=== PATIENT | male | born 1990 | race Caucasian/White ===

== ENCOUNTER 2019-07-08 18:51 | Emergency (ER) | payer MEDICAID ==
[~2019-07-08] VITALS: Ht 172.7 cm; Wt 70.3 kg
[2019-07-08 18:55] VITALS: Ht 172.7 cm; Wt 70.3 kg
--- NOTE | 2019-07-08 19:44 | NUR ---
DR. ARRIAZA NOTIFED AND SITTER ORDERED. SITTER AT BEDSIDE. NOTIFIED CHARGE NURSE AND ATTENDING IN REGARDS TO ASSESSMENT FINDINGS. RESOURCES GIVEN TO PT AND SAFETY PLAN INITIATED.
[2019-07-08 20:37] LABS: ANION GAP 17.3 mmol/L (8-16); CALCIUM 9.5 mg/dL (8.5-10.1); CREATININE - SERUM 1.4 mg/dL (0.6-1.3); POTASSIUM - SERUM 3.3 mmol/L (3.5-5.1); UDS - AMPHET POSITIVE QUAL (NEGATIVE); UDS - BARB NEGATIVE QUAL (NEGATIVE); UDS - BENZO NEGATIVE QUAL (NEGATIVE); UDS - COCAINE NEGATIVE QUAL (NEGATIVE); UDS - OPIATE NEGATIVE QUAL (NEGATIVE); UDS - PCP NEGATIVE QUAL (NEGATIVE); UDS - THC POSITIVE QUAL (NEGATIVE)
[2019-07-08 20:40] LABS: BASOPHILS 0.3 % (0-2); HEMATOCRIT 41.4 % (42.0-54.0); HEMOGLOBIN 13.6 g/dL (13.5-17.5); IMMATURE GRANULOCYTES 0.1 % (0-5); LYMPHOCYTES 23.3 % (15-50); MCHC 32.9 g/dL (31.0-37.0); MCV 85.4 fL (80.0-100.0); MEAN PLATELET VOLUME 10.5 fL (7.4-10.4); MONOCYTES 9.3 % (2-11); PLATELET COUNT 303 10x3/uL (130-400); RBC 4.85 10x6/uL (4.20-6.10); RDW 13.4 % (11.5-14.5); WBC 9.4 10x3/uL (4.8-10.8)
[2019-07-08 20:45] LABS: ALBUMIN 3.8 g/dL (3.4-5.0); APPEARANCE CLEAR (CLEAR); BILIRUBIN NEGATIVE (NEGATIVE); BILIRUBIN - TOTAL 1.42 mg/dL (0.2-1.3); COLOR YELLOW (YELLOW); GLUCOSE NEGATIVE (NEGATIVE); KETONE LARGE mg/dL (NEGATIVE); MAGNESIUM - SERUM 2.1 mg/dL (1.8-2.4); NITRITE NEGATIVE (NEGATIVE); PROTEIN NEGATIVE (NEGATIVE); PROTEIN - SERUM 8.1 g/dL (6.4-8.2); SPECIFIC GRAVITY 1.015 (1.005-1.020); UROBILINOGEN NORMAL (NORMAL)
[2019-07-08 21:30] LABS: CREATINE KINASE 518 UL (21-232)
[2019-07-08 21:33] LABS: CKMB 1.9 U/L (0.0-3.6)
[2019-07-08 21:34] LABS: AMYLASE - SERUM 47 U/L (25-115); LIPASE 107 U/L (73-393)
[2019-07-09 03:56] VITALS: BP 110/47
== END 2019-07-09 07:52 ==
LOC: D.ER 18:51
PROVIDERS: Family Medicine
DX: F20.9 Schizophrenia, unspecified (principal); M62.82 Rhabdomyolysis; F19.10 Other psychoactive substance abuse, uncomplicated; R45.851 Suicidal ideations; I12.0 Hypertensive chronic kidney disease with stage 5 chronic kidney disease or end stage renal disease; F17.210 Nicotine dependence, cigarettes, uncomplicated; Z99.2 Dependence on renal dialysis; N17.9 Acute kidney failure, unspecified; M54.9 Dorsalgia, unspecified; K21.9 Gastro-esophageal reflux disease without esophagitis

== ENCOUNTER 2019-10-01 08:34 | Emergency (ER) | payer MEDICAID ==
[2019-10-01 08:47] VITALS: Ht 172.7 cm
[2019-10-01 09:12] LABS: UDS - AMPHET POSITIVE QUAL (NEGATIVE); UDS - BARB NEGATIVE QUAL (NEGATIVE); UDS - BENZO NEGATIVE QUAL (NEGATIVE); UDS - COCAINE NEGATIVE QUAL (NEGATIVE); UDS - OPIATE NEGATIVE QUAL (NEGATIVE); UDS - PCP NEGATIVE QUAL (NEGATIVE); UDS - THC POSITIVE QUAL (NEGATIVE)
[2019-10-01 09:25] LABS: BILIRUBIN NEGATIVE (NEGATIVE); GLUCOSE NEGATIVE (NEGATIVE); KETONE NEGATIVE (NEGATIVE); NITRITE NEGATIVE (NEGATIVE); UROBILINOGEN NORMAL (NORMAL)
[2019-10-01 09:29] LABS: BACTERIA FEW /hpf (NEGATIVE); EPITHELIAL CELLS NSEEN /hpf (0-5); RED CELLS - URINE 0-5 /hpf (0-5); WHITE CELLS - URINE 0-5 /hpf (NEGATIVE)
[2019-10-01 09:32] LABS: BASOPHILS 0.2 % (0-2); EOSINOPHILS 0.2 % (0-7); HEMATOCRIT 39.3 % (42.0-54.0); HEMOGLOBIN 13.1 g/dL (13.5-17.5); IMMATURE GRANULOCYTES 0.2 % (0-5); LYMPHOCYTES 18.5 % (15-50); MCH 28.9 pg (26.0-34.0); MCHC 33.3 g/dL (31.0-37.0); MCV 86.8 fL (80.0-100.0); MEAN PLATELET VOLUME 9.3 fL (7.4-10.4); MONOCYTES 8.1 % (2-11); NEUTROPHILS 72.8 % (40-80); RBC 4.53 10x6/uL (4.20-6.10); RDW 13.9 % (11.5-14.5); WBC 10.9 10x3/uL (4.8-10.8)
[2019-10-01 09:35] LABS: PLATELET COUNT 374 10x3/uL (130-400)
[2019-10-01 09:41] LABS: CALC OSMOLALITY 282 mosm/kg (275-300); CALCIUM 9.1 mg/dL (8.5-10.1); CARBON DIOXIDE 30.2 mmol/L (21.0-32.0); CHLORIDE - SERUM 104 mmol/L (98-107); CREATININE - SERUM 1.1 mg/dL (0.6-1.3); GLUCOSE 91 mg/dL (74-106); POTASSIUM - SERUM 3.8 mmol/L (3.5-5.1); SODIUM 141 mmol/L (136-145); UREA NITROGEN 17 mg/dL (7-18); eGFR NON AFRICAN AMERICAN 83 mL/min (90-120)
[2019-10-01 09:46] LABS: ALBUMIN 4.1 g/dL (3.4-5.0); ALKALINE PHOSPHATASE 97 U/L (30-120); ALT (SGPT) 22 U/L (10-68); BILIRUBIN - TOTAL 0.37 mg/dL (0.2-1.3); PROTEIN - SERUM 7.7 g/dL (6.4-8.2)
--- NOTE | 2019-10-01 09:58 | NUR ---
DR ARRIAZA NOTIFIED AND REVIEWED PT'S BEHAVIOR AND ASSESSMENT. PT IS A HIGH RISK. STATED HE HEARS VOICES TELLING HIM TO KILL HIMSELF. PATIENT HAVING VISUAL AND AUDITORY HALLUCINATIONS AT THIS TIME. PATIENT PARANOID AND DELUSIONAL. SITTER ORDERED AND AT BEDSIDE. REFUSED SUICIDE RESOURCES.
[2019-10-01 14:54] VITALS: BP 134/63
== END 2019-10-01 15:03 ==
LOC: D.ER 08:34
PROVIDERS: Family Medicine
DX: R45.851 Suicidal ideations (principal); F23 Brief psychotic disorder; R45.850 Homicidal ideations; F15.10 Other stimulant abuse, uncomplicated; I10 Essential (primary) hypertension; I12.9 Hypertensive chronic kidney disease with stage 1 through stage 4 chronic kidney disease, or unspecified chronic kidney disease; N18.9 Chronic kidney disease, unspecified; Z99.2 Dependence on renal dialysis

== ENCOUNTER 2020-04-20 14:08 | Emergency (ER) | payer MEDICAID ==
[2020-04-20 14:37] VITALS: BP 138/77; Ht 172.7 cm
[2020-04-20 15:01] LABS: BASOPHILS 0.1 % (0-2); EOSINOPHILS 0.2 % (0-7); HEMATOCRIT 46.6 % (42.0-54.0); HEMOGLOBIN 15.4 g/dL (13.5-17.5); IMMATURE GRANULOCYTES 0.2 % (0-5); LYMPHOCYTES 14.7 % (15-50); MCV 90.7 fL (80.0-100.0); MEAN PLATELET VOLUME 10.3 fL (7.4-10.4); MONOCYTES 8.6 % (2-11); NEUTROPHILS 76.2 % (40-80); PLATELET COUNT 308 10x3/uL (130-400); RBC 5.14 10x6/uL (4.20-6.10); RDW 12.6 % (11.5-14.5)
[2020-04-20 15:10] LABS: UDS - AMPHET NEGATIVE QUAL (NEGATIVE); UDS - BARB NEGATIVE QUAL (NEGATIVE); UDS - BENZO NEGATIVE QUAL (NEGATIVE); UDS - COCAINE NEGATIVE QUAL (NEGATIVE); UDS - OPIATE NEGATIVE QUAL (NEGATIVE); UDS - PCP NEGATIVE QUAL (NEGATIVE); UDS - THC NEGATIVE QUAL (NEGATIVE)
[2020-04-20 15:10] LABS: ANION GAP 8.5 mmol/L (8-16); CALCIUM 9.4 mg/dL (8.5-10.1); CARBON DIOXIDE 29.6 mmol/L (21.0-32.0); CREATININE - SERUM 1.3 mg/dL (0.6-1.3); POTASSIUM - SERUM 4.1 mmol/L (3.5-5.1)
[2020-04-20 15:16] LABS: ALBUMIN 4.3 g/dL (3.4-5.0); BILIRUBIN - TOTAL 0.54 mg/dL (0.2-1.3); MAGNESIUM - SERUM 2.3 mg/dL (1.8-2.4)
[2020-04-20 15:19] LABS: BILIRUBIN NEGATIVE (NEGATIVE); KETONE NEGATIVE (NEGATIVE); NITRITE NEGATIVE (NEGATIVE); UROBILINOGEN NORMAL mg/dL (< 2)
== END 2020-04-21 16:06 ==
LOC: D.ER 14:08
PROVIDERS: Family Medicine
DX: R45.851 Suicidal ideations (principal); F20.9 Schizophrenia, unspecified